=== PATIENT | male | born 1990 | race Two or more races ===

== ENCOUNTER 2018-04-23 11:31 | Emergency (ER) | payer SELFPAY ==
[~2018-04-23] VITALS: Ht 167.6 cm; Wt 60.8 kg
[2018-04-23 11:56] LABS: BASOPHILS # (AUTO) 0.1 /CMM (0.0-0.2); BASOPHILS % (AUTO) 0.8 % (0.0-2.0); EOSINOPHILS % (AUTO) 2.6 % (0.0-6.0); HEMATOCRIT 47 % (39-51); HEMOGLOBIN 16.1 g/dL (13.5-17.5); LYMPHOCYTES # (AUTO) 1.8 /CMM (0.8-4.8); LYMPHOCYTES % (AUTO) 26.6 % (20.0-44.0); MEAN CORPUSCULAR HGB CONC 34 g/dl (31.0-36.0); MEAN CORPUSCULAR VOLUME 89 fL (80-96); MONOCYTES # (AUTO) 0.5 /CMM (0.1-1.30); MONOCYTES % (AUTO) 6.8 % (2.0-12.0); NEUTROPHILS # (AUTO) 4.4 /CMM (1.8-8.9); NEUTROPHILS % (AUTO) 63.2 % (43.0-81.0); PLATELET COUNT (AUTO) 489 /CMM (150-450); RED BLOOD CELL COUNT(AUTO) 5.25 MIL/uL (4.5-6.0); WHITE BLOOD COUNT (AUTO) 6.9 K/uL (4.3-11.0)
[2018-04-23 12:04] LABS: CALCIUM, SERUM 9.3 mg/dL (8.5-10.1); CARBON DIOXIDE 33 mmol/L (21-32); CHLORIDE 100 mmol/L (98-107); CREATININE 0.6 mg/dL (0.6-1.3); GLUCOSE 89 mg/dL (74-106); POTASSIUM 4.4 mmol/L (3.5-5.1); SODIUM SERUM 139 mmol/L (136-145); UREA NITROGEN, BLOOD 9 mg/dL (7-18)
[2018-04-23 12:05] LABS: BILIRUBIN,URINE Negative (NEGATIVE); BLOOD, URINE Small Ery/uL (NEGATIVE); COLOR,URINE Yellow (YELLOW); KETONES,URINE Negative (NEGATIVE); LEUKOCYTE ESTERASE ,URINE Negative (NEGATIVE); NITRITE, URINE Negative (NEGATIVE); PH,URINE 7.5 (5.0-8.0); PROTEIN,URINE Negative (NEGATIVE); UGLUCOSE Negative (NEGATIVE); UROBILINOGEN,URINE 0.2 EU/dL (0.2)
[2018-04-23 12:10] LABS: ALANINE AMINOTRANSFERASE 30 U/L (12-78); ALBUMIN 4.2 g/dL (3.4-5.0); ALCOHOL, BLOOD < 3 mg/dL (0-0); ALKALINE PHOSPHATASE 66 U/L (46-116); ASPARTATE AMINOTRANSFERASE 26 U/L (15-37); BILIRUBIN,DIRECT 0.1 mg/dL (0.0-0.2); BILIRUBIN,TOTAL 0.5 mg/dL (0.2-1.0); TOTAL PROTEIN, SERUM 7.9 g/dL (6.4-8.2)
[2018-04-23 12:10] LABS: APPEARANCE,URINE Hazy (CLEAR)
[2018-04-23 12:11] LABS: ACETAMINOPHEN 0 ug/ml (10-30); SALICYLATE 0.6 mg/dL (2.8-20.0)
--- NOTE | 2018-04-23 12:11 | NUR ---
27 Y/O MALE PLACED IN BED 15 C/O ALTERED MENTAL STATUS. PT FOUND IN ALLEY AND BROUGHT IN BY RESCUE. PT APPEARS APHASIC
--- NOTE | 2018-04-23 12:12 | NUR ---
18 G H/L PLACE IN RIGHT A/C. URINE AND BLOOD OBTAINED AND SENT. CXR DONE. PT HAS LOW BP NOW - 85/46. MD ORDERED 1 LITER N/S BOLUS AND IVF RUNNING. PT TAKEN TO CT.
[2018-04-23 12:18] LABS: BACTERIA,URINE None seen /HPF (None Seen); SQUAMOUS EPITHELIAL CELL,UR Few /HPF (None Seen); URINE AMORPHOUS PHOSPHATES Moderate /HPF (None Seen)
[2018-04-23] MEDS: IV NS 0.9% 1,000 ML BAG IV ONE (12:19)
--- NOTE | 2018-04-23 13:50 | NUR ---
LABS BACK. RADIOLOGY RESULTS BACK. PT CLEARED. DX - METH ABUSE. ACI GIVEN. PT DISCHARGED HOME TO FOLLOW UP WITH PMD.
[2018-04-23 13:52] VITALS: BP 116/65
== END 2018-04-23 13:56 | disposition home or self-care (01) ==
LOC: ER 11:37
DX: F15.10 Other stimulant abuse, uncomplicated (principal); D47.3 Essential (hemorrhagic) thrombocythemia; E87.3 Alkalosis; R40.4 Transient alteration of awareness
CPT/HCPCS: 36415; 70450-TC; 71045-TC; 80048-TC; 80076-TC; 80305; 81000-TC; 84443-TC; 85025-TC; A4606; G0480; J7030; Z7610